=== PATIENT | male | born 1965 | race Caucasian/White ===

== ENCOUNTER 2020-07-09 09:01 | Inpatient (IN) ==
[2020-07-09] MEDS ORDERED: DEXTROSE 50% 25 GM/50 ML VIAL IV PRN (10:06)
[2020-07-09] MEDS ORDERED: GLUCAGON 1 MG VIAL IM PRN (10:06)
[2020-07-09] MEDS ORDERED: VANCOMYCIN INJ 1,000 MG in SODIUM CHLORIDE 0.9% 250 ML IV SCH (10:30)
[2020-07-09 10:32] LABS: Basophils # 0.1 10*3/uL (0.0-0.2); Basophils % 0.7 % (0.0-0.8); Eosinophils # 0.3 10*3/uL (0.0-0.87); Eosinophils % 2.7 % (0.00-10.9); Hematocrit 38.2 VOL% (42.0-52.0); Hemoglobin 13.4 GM/DL (14.0-18.0); Immature Granulocytes % 0.7 %; Immature Granulocytes Absolute 0.07 #; Lymphocytes # 1.7 10*3/uL (1.4-4.0); Lymphocytes % 17.3 % (21.2-54.2); Mean Corpuscular HGB Conc 35.1 GM/DL (32-36); Mean Corpuscular Volume 88.2 FL (87-102); Mean Platelet Volume 8.4 FL (9.6-12.0); Monocytes % 6.4 % (1.7-12.7); Neutrophils % 72.2 % (38.7-73.9); Platelet Count 283 T/CUMM (130-400); Red Blood Count 4.33 MC/CUMM (3.8-5.5); Red Cell Distribution Width 12.4 % (9.3-17.3); White Blood Count 9.9 T/CUMM (4-12)
[2020-07-09 10:42] LABS: PT Patient Result 10.9 SECS (10.5-12.0)
[2020-07-09 10:50] LABS: Albumin 3.9 G/DL (3.4-5.0); Bilirubin,Total 0.4 MG/DL (0.2-1.0); Calcium 9.5 MG/DL (8.5-10.1); Osmolality,Calculated 255.5 MOS/KG (273-304); Potassium 5.2 MMOL/L (3.5-5.1); Total Protein 8.8 G/DL (6.4-8.2)
[2020-07-09] MEDS: SODIUM CHLORIDE 0.9% 1,000 ML IV SCH (14:25)
[2020-07-09] MEDS: VANCOMYCIN INJ 1,500 MG in SODIUM CHLORIDE 0.9% 500 ML IV SCH (14:25)
[2020-07-09] MEDS: SULFAMETHOX/TRIMETHOPRIM 800-160 MG TABLET PO SCH (22:13)
[2020-07-10] MEDS: VANCOMYCIN INJ 1,500 MG in SODIUM CHLORIDE 0.9% 500 ML IV SCH ×2 (02:49→13:35)
[2020-07-10 06:02] LABS: Calcium 8.5 MG/DL (8.5-10.1); Osmolality,Calculated 270.7 MOS/KG (273-304)
[2020-07-10] MEDS: SODIUM CHLORIDE 0.9% 1,000 ML IV SCH ×2 (08:14→09:57)
[2020-07-10] MEDS: lisinopriL 20 MG TABLET PO SCH (09:52)
[2020-07-10] MEDS ORDERED: LIDOCAINE 1% 20 ML VIAL ONE (11:14)
[2020-07-10] MEDS ORDERED: propofoL 200 MG/20 ML VIAL IV ONE (11:33)
[2020-07-10] MEDS ORDERED: ONDANSETRON 4 MG/2 ML VIAL ONE (11:33)
[2020-07-10] MEDS ORDERED: MIDAZOLAM 2 MG/2 ML VIAL ONE (11:33)
[2020-07-10] MEDS ORDERED: LIDOCAINE 2% 5 ML VIAL ONE (11:33)
[2020-07-10] MEDS ORDERED: fentaNYL 100 MCG/2 ML VIAL ONE (11:33)
[2020-07-10] MEDS ORDERED: DEXTROSE 50% 25 GM/50 ML VIAL IV PRN (12:11)
[2020-07-10] MEDS ORDERED: GLUCAGON 1 MG VIAL IM PRN (12:11)
[2020-07-10] MEDS ORDERED: BUPIVACAINE 0.5% 50 ML VIAL ONE (12:16)
[2020-07-10] MEDS: SULFAMETHOX/TRIMETHOPRIM 800-160 MG TABLET PO SCH (13:47)
[2020-07-10] MEDS ORDERED: INSULIN REGULAR 100 UNIT/ML SUBCUT SCH (16:30)
[2020-07-10] MEDS ORDERED: CALAMINE LOTION 180 ML BOTTLE TOP PRN (19:59)
[2020-07-10] MEDS: SIMVASTATIN 20 MG TABLET PO SCH (21:36)
[2020-07-11] MEDS: VANCOMYCIN INJ 1,500 MG in SODIUM CHLORIDE 0.9% 500 ML IV SCH ×2 (02:02→14:31)
[2020-07-11] MEDS: SODIUM CHLORIDE 0.9% 1,000 ML IV SCH ×3 (02:02→18:09)
[2020-07-11] MEDS: lisinopriL 20 MG TABLET PO SCH (10:11)
[2020-07-11] MEDS: NEOMYCIN/POLYMYXIN/BACITRACIN OINT 0.9 GM PACK TOP SCH (10:11)
[2020-07-11] MEDS: SIMVASTATIN 20 MG TABLET PO SCH (21:44)
[2020-07-12] MEDS: VANCOMYCIN INJ 1,500 MG in SODIUM CHLORIDE 0.9% 500 ML IV SCH (02:56)
[2020-07-12 07:45] VITALS: BP 132/67
[2020-07-12] MEDS: SODIUM CHLORIDE 0.9% 1,000 ML IV SCH ×2 (08:00→09:32)
[2020-07-12] MEDS: NEOMYCIN/POLYMYXIN/BACITRACIN OINT 0.9 GM PACK TOP SCH (09:31)
[2020-07-12] MEDS: lisinopriL 20 MG TABLET PO SCH (09:31)
== END 2020-07-12 11:27 | disposition home or self-care (01) | DRG 617 ==
LOC: N.OR 09:01 → N.3E 09:06
PROVIDERS: ADMIT Surgery; ATTEND Surgery